=== PATIENT | male | born 1995 | race Caucasian/White ===

== ENCOUNTER → 2020-02-19 | Outpatient (CLI) | payer OTHER ==
[~2020-02-19] MED LIST: ISOVUE-370 76% 100ML VIAL As Ordered ONE
--- NOTE | 2020-02-21 11:22 | REPVR ---
PROCEDURE INFORMATION: Exam: CT Neck With Contrast Exam date and time: 02/19/2020 8:17 AM Age: 24 years old Clinical indication: Enlarged lymph nodes; Localized; Additional info: Localized enlarged lymph node, clinical site of concern unspecified TECHNIQUE: Imaging protocol: Computed tomography images of the neck with intravenous contrast. Radiation optimization: All CT scans at this facility use at least one of these dose optimization techniques: automated exposure control; mA and/or kV adjustment per patient size (includes targeted exams where dose is matched to clinical indication); or iterative reconstruction. Contrast material: ISOVUE 370; Contrast volume: 75 ml; Contrast route: INTRAVENOUS (IV); COMPARISON: No relevant prior studies available. FINDINGS: Brain: The imaged brain is unremarkable. Mastoid air cells: The imaged tympanomastoid cavities are aerated. Nasal cavity: Normal. Nasopharynx: Unremarkable. Oral Cavity: Normal. Dental: Streak artifact from dental hardware partially degrades evaluation of the oral cavity region. Oropharynx: No significant tonsillar enlargement. Hypopharynx: Unremarkable. Larynx: Normal. Retropharyngeal space: Unremarkable. Submandibular/Parotid glands: The major salivary glands appear normal. Thyroid: Normal. Lymph nodes: There are multiple prominent but not pathologically enlarged cervical lymph nodes. Trachea: Visualized trachea is unremarkable. Lungs: Incidental azygos lobe. Bones/joints: No acute abnormality. Vasculature: Tortuous distal internal carotid arteries. Soft tissues: No significant soft tissue swelling. IMPRESSION: No cervical soft tissue mass, abscess, or lymphadenopathy. Electronically signed by: Milton Diaz On 02/21/2020 11:22:20 AM
== END ==
LOC: M RAD 08:04
PROVIDERS: ATTEND Specialist
DX: R59.0 Localized enlarged lymph nodes (principal)
CPT/HCPCS: 70491; Q9967

== ENCOUNTER 2020-03-23 09:41 | Day surgery (SDC) | payer OTHER ==
[~2020-03-23] VITALS: Ht 185.4 cm; Wt 91.1 kg
[~2020-03-23 09:41] MED LIST changes: +IBUP1TAB7 PO; -ISOVUE-370 76% 100ML VIAL As Ordered ONE; +KETOROLAC 60MG 2ML VIAL As Ordered ONE; +LIDOCAINE 1% MDV 20ML VIAL SQ PRN; +LIDOCAINE 2% 100MG/5ML SDV (FOR ANES.) As Ordered ONE; +LR 1,000 ML IV ONE; +MIDAZOLAM INJ 2MG/2ML VIAL (J2250 PER 1MG) As Ordered ONE; +ONDANSETRON 4MG/2ML VIAL As Ordered ONE; +dexameTHASONE 4 MG/ML 1ML VIAL (J1100 PER 1MG) As Ordered ONE; +fentaNYL 100 MCG/2 ML INJECTION (J3010) As Ordered ONE; +propofoL 200 MG/20 ML VIAL As Ordered ONE
[2020-03-23] MEDS ORDERED: BACITRACIN OINTMENT 30GM TUBE As Ordered ONE (12:30)
[2020-03-23] MEDS ORDERED: LIDOCAINE W/EPINEPHRINE 1% 20ML VIAL As Ordered ONE (12:30)
[2020-03-23] MEDS ORDERED: oxyCODONE 5MG TAB PO PRN (14:00)
[2020-03-23] MEDS ORDERED: LR 1,000 ML IV SCH (14:00)
[2020-03-23] MEDS ORDERED: fentaNYL 100 MCG/2 ML INJECTION (J3010) IV PRN (14:00)
[2020-03-23] MEDS ORDERED: ONDANSETRON 4MG/2ML VIAL IV PRN (14:00)
[2020-03-23 14:13] VITALS: BP 122/70
[2020-03-23] MEDS ORDERED: IBUPROFEN 800 MG TAB PO SCH (16:00)
--- NOTE | 2020-03-24 12:28 | RO ---
DATE OF OPERATION: 03/23/2020 PREOPERATIVE DIAGNOSIS: Lymphadenopathy, cervical. POSTOPERATIVE DIAGNOSIS: Lymphadenopathy, cervical. PROCEDURE: Excision of posterior triangle of left cervical lymph nodes. SURGEON: Papi Vieyra MD FIRE ENGINE PUMP OPERATOR: ANESTHESIA: INDICATIONS: This 24-year-old presents with persistent left posterior triangle lymphadenopathy. He had several lymph nodes palpable in this area over a long period of time that seemed to be stacked near each other, giving it somewhat of a suspicious quality. DESCRIPTION OF PROCEDURE: After satisfactory general endotracheal anesthesia was administered, the patient was positioned for left neck surgery. A horizontal incision was made low down on the neck over the end of the posterior triangle. The platysma muscle was divided carefully. Then, the subcutaneous fat below was identified. Using blunt dissection carefully, the underlying superficial area of the deep cervical fascia was excised and immediately below it, a lymph node cluster was identified. Care was taken to avoid any injury to the spinal accessory nerve, which was noted to be anterior to the dissection. The lymph node was bluntly dissected from the surrounding tissue. Small pedicles of soft tissue connecting the lymph node to the surrounding area was clamped, cut, and ligated with 4-0 Vicryl suture. Ultimately, two lymph nodes were resected from this area. The incision was closed using interrupted 3-0 Vicryl sutures to close the platysma muscle and a 5-0 nylon suture was used to close the skin. The patient tolerated the procedure well and was sent to recovery in satisfactory condition. He will be seen back in the office in one week to discuss the results. JAYME
== END 2020-03-23 14:56 | disposition home or self-care (01) ==
LOC: M SDC 09:41
PROVIDERS: ATTEND Specialist
DX: R59.0 Localized enlarged lymph nodes (principal); F17.210 Nicotine dependence, cigarettes, uncomplicated
CPT/HCPCS: 38510; 88305; J1100; J1885; J2250; J2405; J3010

== ENCOUNTER 2020-06-25 21:45 | Emergency (ER) | payer OTHER ==
[~2020-06-25] VITALS: Ht 185.4 cm; Wt 84.1 kg
[2020-06-25 21:45] VITALS: BP 118/64
[~2020-06-25 21:45] MED LIST changes: -KETOROLAC 60MG 2ML VIAL As Ordered ONE; -LIDOCAINE 1% MDV 20ML VIAL SQ PRN; -LIDOCAINE 2% 100MG/5ML SDV (FOR ANES.) As Ordered ONE; -LR 1,000 ML IV ONE; -MIDAZOLAM INJ 2MG/2ML VIAL (J2250 PER 1MG) As Ordered ONE; -ONDANSETRON 4MG/2ML VIAL As Ordered ONE; -dexameTHASONE 4 MG/ML 1ML VIAL (J1100 PER 1MG) As Ordered ONE; -fentaNYL 100 MCG/2 ML INJECTION (J3010) As Ordered ONE; -propofoL 200 MG/20 ML VIAL As Ordered ONE
--- OUTSIDE RECORDS SUMMARY | 2020-06-25 21:49 | CCD | Continuity of Care Document ---
Author Author Rene VIEYRA MD Organization Unknown Address [address] [facility] [address] [place] [address] Phone [phone] Care Team Providers Care Desk Monitor Name Role Phone July P.A. AUTM [phone] AUTM Unavailable Kristal Davidsontho AUTM [phone] Problems Description No Information Available Social History Type Date Description Comments Sex Unknown ETOH Use Rarely Tobacco Use Start: Unknown Patient is a current smoker, smo kes every day 1 ppd Allergies, Adverse Reactions, Alerts Description No Known Drug Allergies Medications Description No Active Medications Immunizations Description No Information Available Vital Signs Date Vital Result Comment 03/31/2020 1:42pm Height 73 inches 6'1" Weight 187.00 lb BMI (Body Mass Index) 24.7 kg/m2 [place] Body Weight 184 lb Weight 84.823 kg BSA (Body Surface Area) 2.09 m2 03/16/2020 9:00am Height 73 inches 6'1" Weight 187.00 lb BMI (Body Mass Index) 24.7 kg/m2 [place] Body Weight 184 lb Weight 84.823 kg BSA (Body Surface Area) 2.09 m2 Results Test Acquired Date Facility Test Result H/L Range Note Laboratory test finding 03/23/2020 [facility] Main Lab [address] [place] [address] [phone] Pathology Request For Service (SEE NOTE) 1 1 FINAL DIAGNOSIS Lymph node, left neck, biopsy: Reactive lymph node. Negative for malignancy. 03/29/2020 - 0931 CLINICAL DIAGNOSIS Lymph adenopathy 03/24/2020 - 1330 GROSS DIAGNOSIS Received in formalin labeled "lymph node left neck biopsy" and consists of a lymph node 2 x 1.5 x 0.6 cm. All in one. -OA 03/24/2020 - 1330 Signed JAYJAY CHU MD 03/29/2020 0931 Procedures Date Code Description Status 03/23/2020 90638 Biopsy/Excision Deep Cervical No de(S) Completed Medical Devices Description No Information Available Encounters Type Date Location Provider Dx Diagnosis Office Visit 03/16/2020 8:45a [facility] Papi mcguire MD R59.0 Localized enlarged lymph nodes Office Visit 02/11/2020 1:45p [facility] Papi mcguire MD R59.0 Localized enlarged lymph nodes E04.1 Nontoxic single thyroid nodu le Assessments Date Code Description Provider 03/23/2020 R59.0 Localized enlarged lymph nodes R walter Vieyra MD 03/16/2020 R59.0 Localized enlarged lymph nodes R walter Vieyra MD 02/11/2020 R59.0 Localized enlarged lymph nodes R walter Vieyra MD 02/11/2020 E04.1 Nontoxic single thyroid nodule R walter Vieyra MD Plan of Treatment 02/11/2020 - Papi Vieyra MD* R59.0 Localized enlarged lymph nodes* Recommendations:* CT Scan Neck ordered He should bring previously blood work wih him * 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 [id number] Created [facility] [address] [place] [phone] Mckinley Figueroa MD Created [address] [place] [phone] Papi Vieyra M.D. ONLINE MARKETING STRATEGIST LOCALIZED ENLARGED LYMPH NODES OFFICE CONSULT NEW OR ESTAB (1) 01/08/2020-07/06/2020 OFFICE/OUTPATIENT VISIT ESTAB (3) 01/08/2020- 01/07/2021 Scheduled 02/06/2020 [facility] [address] [place] [phone]
--- OUTSIDE RECORDS SUMMARY | 2020-06-25 21:49 | CCD ---
Author Author [facility] Organization [facility] Address Unknown Phone Unavailable Care Team Providers Care Maintenance Dispatcher Name Role Phone Abriss, Meme Turpin MD Unavailable Unavailable Abriss, Meme Turpin MD Unavailable Unavailable Abriss, Meme Turpin MD Unavailable Unavailable Abriss, B Papi LEIVA Unavailable Unavailable Abriss, B Papi LEIVA Unavailable Unavailable Abriss, B Papi LEIVA Unavailable Unavailable Abriss, B Papi LEIVA Unavailable Unavailable Abriss, B Papi LEIVA Unavailable Unavailable Abriss, B Papi LEIVA Unavailable Unavailable Abriss, B Papi LEIVA Unavailable Unavailable Abriss, B Papi LEIVA Unavailable Unavailable Abriss, B Papi LEIVA Unavailable Unavailable Abriss, B Papi LEIVA Unavailable Unavailable Abriss, B Papi LEIVA Unavailable Unavailable Abriss, B Papi LEIVA Unavailable Unavailable Abriss, B Papi LEIVA Unavailable Unavailable Abriss, B Papi LEIVA Unavailable Unavailable Abriss, B Papi LEIVA Unavailable Unavailable Re-disclosure Warning The records that you are about to access may contain information from federally-assisted alcohol or drug abuse programs. If such information is present, then the following federally mandated warning applies: This information has been disclosed to you from records protected by federal confidentiality rules (42 CFR part 2). The federal rules prohibit you from making any further disclosure of this information unless further disclosure is expressly permitted by the written consent of the person to whom it pertains or as otherwise permitted by 42 CFR part 2. A general authorization for the release of medical or other information is NOT sufficient for this purpose. The Federal rules restrict any use of the information to criminally investigate or prosecute any alcohol or drug abuse patient.The records that you are about to access may contain highly sensitive health information, the redisclosure of which is protected by Article 27-F of the [place] State Public Health law. If you continue you may have access to information: Regarding HIV / AIDS; Provided by facilities licensed or operated by the [facility] Office of Mental Health; or Provided by the [facility] Office for People With Developmental Disabilities. If such information is present, then the following [facility] mandated warning applies: This information has been disclosed to you from confidential records which are protected by state law. State law prohibits you from making any further disclosure of this information without the specific written consent of the person to whom it pertains, or as otherwise permitted by law. Any unauthorized further disclosure in violation of state law may result in a fine or prison sentence or both. A general authorization for the release of medical or other information is NOT sufficient authorization for further disc losure. Encounters Encounter Providers Location Date Indications Data Source(s ) Outpatient Attender: Papi Figueroa/Michael/Malcolm/Re indl 03/16/2020 07:45:00 AM EST [facility] ([facility], ) Outpatient Attender: Papi Figueroa/Bin/Barbara indl 02/11/2020 01:45:00 PM EDT [facility] ([facility], ) Insurance Providers Payer name Policy type / Coverage type Policy ID Covered alliance party ID Covered alliance party's relationship to bay Policy [place] Plan Information [facility] ACTIVE DUTY [id number] [facility] ACTIVE DUTY [id number] Surgeries/Procedures Procedure Description Date Indications Data Source(s) Biopsy/Excision Deep Cervical Node(S) 03/23/2020 12:00 :00 AM EST [facility] ([facility], ) Results ID Date Data Source [id number] 03/23/2020 01:45:00 PM EST [facility] ([facility], ) Name Value Range Interpretation Code Description Data Anma rce(s) Supporting Document(s) Surgical pathology study Laboratory test result [facility] ([facility], ) FINAL DIAGNOSIS Lymph node, left neck, biopsy: Reactive lymph node. Negative for malignancy. 03/29/2020930 CLINICAL DIAGNOSIS Lymph adenopathy 03/24/20201329 GROSS DIAGNOSIS Received in formalin labeled "lymph node left neck biopsy" and consists of a lymph node 2 x 1.5 x 0.6 cm. All in one. -OA 03/24/2020 - 1330 Signed JAYJAY CHU MD 03/29/2020 0931 Procedure Vital Signs ID Date Data Source UNK Name Value Range Interpretation Code Description Data Source(s) Body surface area Derived from formula 2.09 m2 2.09 m2 [facility] ([facility]) Body weight 84.823 kg 84.823 kg [facility] ([facility]) [place] body weight 184 [lb_av] 184 [lb_av] [facility] ([facility]) Body mass index (BMI) [Ratio] 24.7 kg/m2 24.7 k g/m2 [facility] ([facility]) Body weight 187.00 [lb_av] 187.00 [lb_av] [facility] ([facility]) Body height 73 [in_i] 73 [in_i] [facility] 6'1" Body surface area Derived from formula 2.09 m2 2.09 m2 [facility] ([facility]) Body weight 84.823 kg 84.823 kg [facility] ([facility]) [place] body weight 184 [lb_av] 184 [lb_av] [facility] ([facility]) Body mass index (BMI) [Ratio] 24.7 kg/m2 24.7 k g/m2 [facility] ([facility]) Body weight 187.00 [lb_av] 187.00 [lb_av] [facility] ([facility]) Body height 73 [in_i] 73 [in_i] [facility] 6'1" Body weight 84.823 kg 84.823 kg [facility] ([facility]) [place] body weight 184 [lb_av] 184 [lb_av] [facility] ([facility]) Body mass index (BMI) [Ratio] 24.7 kg/m2 24.7 k g/[facility] Body weight 187.00 [lb_av] 187.00 [lb_av] [facility] ([facility]) Body height 73 [in_i] 73 [in_i] [facility] 6'1"
--- OUTSIDE RECORDS SUMMARY | 2020-06-25 22:44 | CCD ---
Author Author [facility] Organization [facility] Address Unknown Phone Unavailable Care Team Providers Care Gasoline Tester Name Role Phone Abriss, Meme Turpin MD [...] is protected by Article 27-F of the [place] State Public Health law. If you continue you may have access to information: Regarding HIV / AIDS; Provided by facilities licensed or operated by the [facility] Office of Mental Health; or Provided by the [facility] Office for People With Developmental Disabilities. If such information is present, then the following [facility] mandated warning applies: This information has been [...] law may result in a fine or alf sentence or both. A general authorization for the release of medical or other information is NOT sufficient authorization for further disc losure. Encounters Encounter Providers Location Date Indications Data Source(s ) Outpatient Attender: Papi Figueroa/Michael/Malcolm/Re indl 03/16/2020 07:45:00 AM EST [facility] ([facility], ) Outpatient Attender: Papi Figueroa/Bin/Barbara indl 02/11/2020 01:45:00 PM EDT [facility] ([facility], ) Insurance Providers Payer name Policy type / Coverage type Policy ID Covered libertarian ID Covered libertarian's relationship to bay Policy [place] Plan Information [facility] ACTIVE DUTY [id number] [facility] ACTIVE DUTY [id number] Surgeries/Procedures Procedure Description Date Indications Data Source(s) Biopsy/Excision Deep Cervical Node(S) 03/23/2020 12:00 :00 AM EST [facility] ([facility], ) Results ID Date Data Source [id number] 03/23/2020 01:45:00 PM EST [facility] ([facility], ) Name Value Range Interpretation Code Description Data Amna rce(s) Supporting Document(s) Surgical pathology study Laboratory test result [facility] ([facility], ) FINAL DIAGNOSIS Lymph node, left [...] Derived from formula 2.09 m2 2.09 m2 [facility] ([facility]) Body weight 84.823 kg 84.823 kg [facility] ([facility]) [place] body weight 184 [lb_av] 184 [lb_av] [facility] ([facility]) Body mass index (BMI) [Ratio] 24.7 kg/m2 24.7 k g/m2 [facility] ([facility]) Body weight 187.00 [lb_av] 187.00 [lb_av] [facility] ([facility]) Body height 73 [in_i] 73 [in_i] [facility] 6'1" Body surface area Derived from formula 2.09 m2 2.09 m2 [facility] ([facility]) Body weight 84.823 kg 84.823 kg [facility] ([facility]) [place] body weight 184 [lb_av] 184 [lb_av] [facility] ([facility]) Body mass index (BMI) [Ratio] 24.7 kg/m2 24.7 k g/m2 [facility] ([facility]) Body weight 187.00 [lb_av] 187.00 [lb_av] [facility] ([facility]) Body height 73 [in_i] 73 [in_i] [facility] 6'1" Body weight 84.823 kg 84.823 kg [facility] ([facility]) [place] body weight 184 [lb_av] 184 [lb_av] [facility] ([facility]) Body mass index (BMI) [Ratio] 24.7 kg/m2 24.7 k g[facility] Body weight 187.00 [lb_av] 187.00 [lb_av] [facility] ([facility]) Body height 73 [in_i] 73 [in_i] [facility] 6'1"
== END 2020-06-25 22:49 | disposition home or self-care (01) ==
LOC: M ED 21:45
DX: S90.122A Contusion of left lesser toe(s) without damage to nail, initial encounter (principal); X50.0XXA Overexertion from strenuous movement or load, initial encounter; Y92.9 Unspecified place or not applicable; Y93.9 Activity, unspecified; Y99.1 Military activity